=== PATIENT | female | born 1960 ===

== ENCOUNTER 2021-10-01 11:08 | Outpatient (CLI) | payer OTHER | END 2021-10-01 11:19 | disposition home or self-care (01) | LOC: SONOGRAMA 11:08 | PROVIDERS: ATTEND Family Medicine | DX: D17.23 Benign lipomatous neoplasm of skin and subcutaneous tissue of right leg (principal) ==

== ENCOUNTER 2025-05-01 07:28 | Outpatient (CLI) | payer OTHER | END 2025-05-01 07:38 | disposition home or self-care (01) | LOC: TOM 07:28 | DX: R10.30 Lower abdominal pain, unspecified (principal) ==

== ENCOUNTER 2025-06-01 13:37 | Outpatient (CLI) | payer OTHER | END 2025-06-01 13:49 | disposition home or self-care (01) | LOC: SONOGRAMA 13:37 | PROVIDERS: ATTEND Pediatrics | DX: S93.402A Sprain of unspecified ligament of left ankle, initial encounter (principal) ==